=== PATIENT | female | born 2000 | race American Indian/Alaskan Native ===

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

== ENCOUNTER 2019-04-14 19:16 | Emergency (ER) | payer SELFPAY ==
[2019-04-14 20:16] VITALS: BP 102/69
--- NOTE | 2019-04-14 22:08 | Emergency Department Report ---
Blank Doc - Documentation Documentation: 18-year-old female that presents with abdominal pain and dysuria. This initial assessment/diagnostic orders/clinical plan/treatment(s) is/are subject to change based on patient's health status, clinical progression and re- assessment by fellow clinical providers in the ED. Further treatment and workup at subsequent clinical providers discretion. Patient/guardians urged not to elope from the ED as their condition may be serious if not clinically assessed and managed. Initial orders include: 1- Patient sent to [facility] for further evaluation and treatment 2- UA 3- labs
[2019-04-14 23:14] LABS: Basophils % (Auto) 0.6 % (0.0-1.8); Eosinophils # (Auto) 0.1 K/mm3 (0.0-0.4); Eosinophils % (Auto) 1.4 % (0.0-4.3); Hematocrit 38.4 % (30.3-42.9); Hemoglobin 12.5 gm/dl (10.1-14.3); Lymphocytes # (Auto) 2.4 K/mm3 (1.2-5.4); Lymphocytes % (Auto) 32.6 % (13.4-35.0); Mean Corpuscular HGB Conc 33 % (30-34); Mean Corpuscular Volume 80 fl (79-97); Monocytes # (Auto) 0.7 K/mm3 (0.0-0.8); Monocytes % (Auto) 8.8 % (0.0-7.3); Platelet Count 339 K/mm3 (140-440); Red Blood Count 4.78 M/mm3 (3.65-5.03); Red Cell Distribution Width 13.2 % (13.2-15.2)
[2019-04-14 23:38] LABS: Alanine Aminotransferase 12 units/L (7-56); Albumin 4.3 g/dL (3.9-5); BUN/Creatinine Ratio 12; Blood Urea Nitrogen 7 mg/dL (7-17); Calcium 9.6 mg/dL (8.4-10.2); Hemolysis Index 58
[2019-04-14 23:49] LABS: HCG Qualitative,Urine Positive (Negative)
[2019-04-14 23:52] LABS: Bilirubin,Urine NEG (Negative); Blood,Urine NEG (Negative); Color,Urine Yellow (Yellow); Mucus,Urine 3+ /HPF
[2019-04-15] MEDS ORDERED: METOCLOPRAMIDE 10 MG/2 ML INJ IV ONE (00:16)
[2019-04-15] MEDS ORDERED: SODIUM CHLORIDE 0.9% 1000 ML 1,000 ML IV ONE (00:16)
[2019-04-15] MEDS ORDERED: diphenhydrAMINE 50 MG/ML VIAL IV ONE (00:16)
--- NOTE | 2019-04-15 00:22 | Emergency Department Report ---
ED Abdominal Pain HPI - General Chief Complaint: Abdominal Pain Stated Complaint: BACK PAIN PAINFUL URINATION Time Seen by Provider: 04/14/19 22:07 Source: patient Mode of arrival: Ambulatory Limitations: No Limitations - History of Present Illness Initial Comments: Ms. Medina is a 18 y/o aaf G1, P1, A0, LMP 1 1/2 months ago that presents with abdominal pain, intermittent n/v, and dysuria. pain described as cramping ,aching with back spasm, states associated dysuria, no vaginal bleeding, denies discharge, no fever , no chills. symptoms are exacerbated by noting, symptoms are relieved by nothing tried. MD Complaint: abdominal pain Onset/Timin -: days(s) Location: LLQ, RLQ Radiation: suprapubic Severity: moderate Severity scale (0 -10): 3 Quality: aching Consistency: intermittent Improves With: nothing Worsens With: nothing Associated Symptoms: nausea, vomiting, dysuria. denies: diarrhea, fever, chills, constipation, hematemesis, hematochezia, melena, hematuria, anorexia, syncope - Related Data LMP Date: 03/01/19 Previous Rx's Medication Instructions Recorded Last Taken Type Metoclopramide [Reglan] 10 mg PO Q8H PRN #30 tablet 04/15/19 Unknown Rx diphenhydrAMINE [Benadryl CAP] 25 mg PO Q8HR PRN #30 capsule 04/15/19 Unknown Rx Allergies Allergy/AdvReac Type Severity Reaction Status Date / Time No Known Allergies Allergy Unverified 08/17/16 18:12 ED Review of Systems ROS: Stated complaint: BACK PAIN PAINFUL URINATION Other details as noted in HPI Constitutional: denies: chills, fever Eyes: denies: eye pain, eye discharge, vision change ENT: denies: ear pain, throat pain Respiratory: denies: cough, shortness of breath, wheezing Cardiovascular: denies: chest pain, palpitations Endocrine: no symptoms reported Gastrointestinal: abdominal pain, nausea, vomiting. denies: diarrhea, constipation Genitourinary: urgency, dysuria, frequency. denies: hematuria, discharge Musculoskeletal: back pain. denies: joint swelling, arthralgia Skin: denies: rash, lesions Neurological: denies: headache, weakness, paresthesias Psychiatric: denies: anxiety, depression Hematological/Lymphatic: as per HPI ED Past Medical Hx - Past Medical History Previous Medical History?: No Hx Hypertension: No Hx Diabetes: No Hx Deep Vein Thrombosis: No Hx Renal Disease: No Hx Sickle Cell Disease: No Hx Seizures: No Hx Asthma: No Hx HIV: No - Surgical History Past Surgical History?: Yes - Social History Smoking Status: Never Smoker Substance Use Type: None - Medications Home Medications: Home Medications Medication Instructions Recorded Confirmed Last Taken Type Metoclopramide [Reglan] 10 mg PO Q8H PRN #30 tablet 04/15/19 Unknown Rx diphenhydrAMINE [Benadryl CAP] 25 mg PO Q8HR PRN #30 capsule 04/15/19 Unknown Rx ED Physical Exam - General Limitations: No Limitations General appearance: alert, in no apparent distress - Head Head exam: Present: atraumatic, normocephalic - Eye Eye exam: Present: normal appearance, PERRL, EOMI Pupils: Present: normal accommodation - ENT ENT exam: Present: mucous membranes moist - Neck Neck exam: Present: normal inspection, full ROM. Absent: tenderness - Respiratory Respiratory exam: Present: normal lung sounds bilaterally. Absent: respiratory distress, wheezes, stridor, chest wall tenderness - Cardiovascular Cardiovascular Exam: Present: regular rate, normal rhythm, normal heart sounds. Absent: systolic murmur, diastolic murmur, rubs, gallop - GI/Abdominal GI/Abdominal exam: Present: soft, tenderness (bilat lower abd), normal bowel sounds. Absent: distended, guarding, rebound, rigid, bruit, hernia - Expanded GI/Abdominal Exam Expanded GI/Abdominal exam: Absent: psoas sign, obturator sign, heel tap sign, Chance's sign, Rovsing's sign, tenderness at Mcburney's Point, ascites - Rectal Rectal exam: Present: deferred - External exam: Present: other (exam deferred per patient ) - Extremities Exam Extremities exam: Present: normal inspection, full ROM. Absent: tenderness, pedal edema - Back Exam Back exam: Present: normal inspection, full ROM. Absent: tenderness, CVA tenderness (R), CVA tenderness (L), muscle spasm - Neurological Exam Neurological exam: Present: alert, oriented X3, CN II-XII intact, normal gait - Psychiatric Psychiatric exam: Present: normal affect, normal mood - Skin Skin exam: Present: warm, dry, intact, normal color. Absent: rash ED Course Vital Signs 04/14/19 20:15 Temperature 98.5 F Pulse Rate 110 H Respiratory 18 Rate Blood Pressure 102/69 O2 Sat by Pulse 100 Oximetry ED Medical Decision Making - Lab Data Result diagrams: 04/14/19 22:34 04/14/19 22:34 Labs 04/14/19 04/14/19 04/14/19 22:34 22:34 Unknown WBC 7.5 RBC 4.78 Hgb 12.5 Hct 38.4 MCV 80 MCH 26 L MCHC 33 RDW 13.2 Plt Count 339 Lymph % (Auto) 32.6 [place] % (Auto) 8.8 H Eos % (Auto) 1.4 Baso % (Auto) 0.6 Lymph # 2.4 [place] # 0.7 Eos # 0.1 Baso # 0.0 Seg Neutrophils % 56.6 Seg Neutrophils # 4.2 Sodium 141 Potassium 4.3 Chloride 102.8 Carbon Dioxide 21 L Anion Gap 22 BUN 7 Creatinine 0.6 L Estimated GFR > 60 BUN/Creatinine Ratio 12 Glucose 87 Calcium 9.6 Total Bilirubin 0.20 AST 15 ALT 12 Alkaline Phosphatase 75 Total Protein 8.1 Albumin 4.3 Albumin/Globulin Ratio 1.1 Lipase 14 Urine Color Yellow Urine Turbidity Slightly-cloudy Urine pH 6.0 Ur Specific [place] 1.031 H Urine Protein 30 mg/dl Urine Glucose (UA) Neg Urine Ketones Neg Urine Blood Neg Urine Nitrite Neg Ur Reducing Substances Not Reportable Urine Bilirubin Neg Urine Ictotest Not Reportable Urine Urobilinogen 2.0 Ur Leukocyte Esterase Neg Urine WBC (Auto) 4.0 Urine RBC (Auto) 3.0 U Epithel Cells (Auto) 18.0 H Urine Mucus 3+ Urine HCG, Qual Positive A - Radiology Data Radiology results: report reviewed, image reviewed Findings [facility] [address] [place] [address] Ultrasound Report Signed Patient: DIDIER MEDINA MR#: [id number] : 2000 Acct:[id number] Age/Sex: 18 / F ADM Date: 04/14/19 Loc: ED Attending Dr: Ordering Physician: JACK ESPINAL NP Date of Service: 04/15/19 Procedure(s): US OB <= 14 weeks fetus Accession Number(s): [id number] cc: JACK ESPINAL NP OB Ultrasound HISTORY: abd pain pos preg. TECHNIQUE: Grayscale and color imaging performed. COMPARISON: None FINDINGS: Uterus measures 7.5 x 5.9 x 5.7 cm with a small cystic structure in the region of the fundus measuring 9 mm. This would correlate with an EGA of 5 weeks and 5 days. No pole or yolk sac is identified. No free fluid identified. Ovaries both appear normal with preserved blood flow. IMPRESSION: Tiny cystic structure in the endometrial canal could represent an early gestation. Correlate with beta hCG level and if needed follow-up pelvic ultrasound. Otherwise nothing acute. Signer Name: Mckinley Acosta MD Signed: 04/15/2019 1:06 AM Workstation Name: [id number] Transcribed By: SAMMY Dictated By: Mckinley Acosta MD Electronically Authenticated By: Mckinley Acosta MD Signed Date/Time: 04/15/19105 DD/ 4 TD/TT: - Medical Decision Making early gestation 5 weeks and 5 days, hc, ua: noted above , pt denies possibility for STI, plan : Keflex, Reglan, Benadryl, follow up with OBGYN in 2- 3 days, return to emergency if 2-3 days, return to emergency if symptoms worsen. pt verbalized agreement and understanding of discharge plan. Critical care attestation.: If time is entered above; I have spent that time in minutes in the direct care of this critically ill patient, excluding procedure time. ED Disposition Clinical Impression: Dysuria Qualifiers: Weeks of gestation: less than 8 weeks Qualified Code(s): Z3A.01 - Less than 8 weeks gestation of Disposition: DC-01 TO HOME OR SELFCARE Is pt being admited?: No Does the pt Need Aspirin: No Condition: Stable Instructions: (ED), Dysuria (ED) Prescriptions: diphenhydrAMINE [Benadryl CAP] 25 mg PO Q8HR PRN #30 capsule PRN Reason: Nausea And Vomiting Metoclopramide [Reglan] 10 mg PO Q8H PRN #30 tablet PRN Reason: nausea vomiting Referrals: [facility] [Provider Group] - 3-5 Days Forms: Work/School Release Form(ED) Time of Disposition: 01:42
--- NOTE | 2019-04-15 01:10 | Ultrasound Report ---
OB Ultrasound HISTORY: abd pain pos preg. TECHNIQUE: Grayscale and color imaging performed. COMPARISON: None FINDINGS: Uterus measures 7.5 x 5.9 x 5.7 cm with a small cystic structure in the region of the fundu s measuring 9 mm. This would correlate with an EGA of 5 weeks and 5 days. No pole or yolk sac i s identified. No free fluid identified. Ovaries both appear normal with preserved blood flow. IMPRESSION: Tiny cystic structure in the endometrial canal could represent an early gestation. Correl ate with beta hCG level and if needed follow-up pelvic ultrasound. Otherwise nothing acute. Signer Name: Mckinley Acosta MD Signed: 04/15/2019 1:06 AM Workstation Name: [id number]
== END 2019-04-15 01:55 | disposition home or self-care (01) ==
LOC: ED 19:16
DX: O26.891 Other specified pregnancy related conditions, first trimester (principal); O21.8 Other vomiting complicating pregnancy; R30.0 Dysuria; Z3A.01 Less than 8 weeks gestation of pregnancy; Z79.899 Other long term (current) drug therapy
CPT/HCPCS: 36415; 76801; 80053; 81001; 81025; 83690; 84702; 85025; 86900; 86901; 96361; 96374; 96375; 99284; J1200; J2765; J7030